=== PATIENT | female | born 1985 | race Caucasian/White ===

== ENCOUNTER 2017-11-20 12:33 | Inpatient (IN) | payer OTHER ==
[~2017-11-20] VITALS: Ht 165.1 cm; Wt 92.1 kg
[~2017-11-20 12:33] MED LIST: CELEXA10 MG PO; CITALOPRAM HBR20 MG PO; IBUPROFEN400 MG PO; Natalcare Rx,Pramile PO; OXYBUTYNIN CHLO10 MG PO; PRAZOSIN HCL1 MG PO
[2017-11-20 14:42] LABS: HEMATOCRIT 44.3 % (36.0-46.0); HEMOGLOBIN 15.1 G/DL (11.9-15.5); MCH 30.4 PG (29.0-34.0); MCHC 34.1 G/DL (30.0-36.0); MCV 89.3 FL (83-99); PLATELET COUNT 306 K/uL (156-360); RBC DIS.WIDTH-CV 12.9 % (11.8-14.6); RBC DIS.WIDTH-SD 42.3 % (39-53); RED BLOOD COUNT 4.96 M/uL (3.80-5.20); WHITE BLOOD COUNT 9.9 K/uL (4.1-10.2)
[2017-11-20 14:50] LABS: ALBUMIN 4.5 g/dL (3.2-4.8); CHLORIDE 108 mEq/L (99-109); POTASSIUM 3.8 mEq/L (3.7-5.4); SODIUM 143 mEq/L (136-147)
[2017-11-20 14:53] LABS: GLUCOSE 88 mg/dL (70-99); TOTAL PROTEIN 8.4 g/dL (6.4-8.3)
[2017-11-20 14:55] LABS: SERUM ETHYL ALCOHOL < 10 mg/dL
[2017-11-20 14:56] LABS: ALKALINE PHOSPHATASE 83 IU/L (3-129); CREATININE 0.8 mg/dL (0.6-1.3); GFR ESTIMATE (CALCULATED) > 59 mL/min/
[2017-11-20 14:57] LABS: UREA NITROGEN (BUN) 16 mg/dL (9-23)
[2017-11-20 14:58] LABS: AST (GOT) 30 IU/L (2-34)
[2017-11-20 14:59] LABS: ALT (GPT) 58 IU/L (3-49)
[2017-11-20 15:05] LABS: AMPHETAMINE NEGATIVE (500 ng/mL); BENZODIAZEPINES NEGATIVE (150 ng/mL); COCAINE NEGATIVE (150 ng/mL); METHADONE NEGATIVE (200 ng/mL); METHAMPHETAMINE NEGATIVE (500 ng/mL); OPIATES (MORPHINE) NEGATIVE (100 ng/mL); PHENCYCLIDINE NEGATIVE (25 ng/mL); THC CANNABINOIDS NEGATIVE (50 ng/mL); TRICYCLIC ANTIDEPRESSANTS NEGATIVE (300 ng/mL)
[2017-11-20 15:06] LABS: BARBITURATES NEGATIVE (200 ng/mL); BUPRENORPHINE NEGATIVE (10 ng/mL); OXYCODONE NEGATIVE (100 ng/mL); PROPOXYPHENE NEGATIVE (300 ng/mL)
[2017-11-20] MEDS ORDERED: OXYBUTYNIN CHLO10 MG PO (20:37)
[2017-11-20] MEDS ORDERED: FLUTICASONE P15.8 ML BOTH NARES (20:38)
[2017-11-20] MEDS ORDERED: MULTI-VITAMIN1 EAC3 PO (20:39)
[2017-11-20] MEDS ORDERED: CLARITIN,ALAVAR10 MG PO (20:40)
[2017-11-20] MEDS ORDERED: MIRENA1 EACH IY (20:40)
[2017-11-20] MEDS ORDERED: CELEXA20 MG PO (20:42)
[2017-11-20 21:45] VITALS: BP 105/72
[2017-11-21 07:39] VITALS: BP 119/56
[2017-11-21 15:35] VITALS: BP 107/65
[2017-11-22 07:54] VITALS: BP 120/59
[2017-11-22 15:30] VITALS: BP 120/74
[2017-11-23 07:32] VITALS: BP 111/56
[2017-11-23 15:34] VITALS: BP 103/61
[2017-11-24 06:54] VITALS: BP 102/55
[2017-11-24] MEDS ORDERED: CELEXA20 MG PO (10:40)
[2017-11-24] MEDS ORDERED: MINIPRESS2 MG PO (10:40)
== END 2017-11-24 11:38 | disposition home or self-care (01) | DRG 885 ==
LOC: EME 12:33 → EDOF 20:14 → 1WEST 20:14 → ENRESERV 20:59 → 1WEST 21:32
PROVIDERS: Emergency Medicine
DX: F33.1 Major depressive disorder, recurrent, moderate (principal); R45.851 Suicidal ideations; R44.0 Auditory hallucinations; F43.12 Post-traumatic stress disorder, chronic; F90.9 Attention-deficit hyperactivity disorder, unspecified type; N32.81 Overactive bladder; F17.210 Nicotine dependence, cigarettes, uncomplicated; F10.10 Alcohol abuse, uncomplicated; Y90.0 Blood alcohol level of less than 20 mg/100 ml; Z62.810 Personal history of physical and sexual abuse in childhood; Z62.811 Personal history of psychological abuse in childhood; E66.3 Overweight; F51.5 Nightmare disorder; G47.00 Insomnia, unspecified; F41.9 Anxiety disorder, unspecified; Z59.0 Homelessness; Z56.0 Unemployment, unspecified; Z91.5 Personal history of self-harm; Z59.9 Problem related to housing and economic circumstances, unspecified; Z81.8 Family history of other mental and behavioral disorders; Z88.6 Allergy status to analgesic agent; Z91.040 Latex allergy status; S70.211D Abrasion, right hip, subsequent encounter; V49.88XD Car occupant (driver) (passenger) injured in other specified transport accidents, subsequent encounter; S20.312D Abrasion of left front wall of thorax, subsequent encounter; Z68.34 Body mass index [BMI] 34.0-34.9, adult
CPT/HCPCS: 80053; 81025; 85027; 90839; 97150 GO; 97165 GO; 99281; 99285; G0480